=== PATIENT | male | born 1990 | race Caucasian/White ===

== ENCOUNTER 2024-12-06 20:24 | Emergency (ER) | payer MEDICAID ==
[2024-12-07] MEDS ORDERED: CLIN150C16 PO (00:58)
== END 2024-12-06 22:25 | disposition left against medical advice (07) ==
LOC: ER 20:24
DX: B37.0 Candidal stomatitis (principal); Z53.21 Procedure and treatment not carried out due to patient leaving prior to being seen by health care provider

== ENCOUNTER 2024-12-07 00:07 | Emergency (ER) | payer MEDICAID ==
[~2024-12-07] VITALS: Ht 172.7 cm; Wt 63.5 kg
[2024-12-07 00:27] VITALS: BP 121/74; TEMP 98.8; O2SAT 99
[2024-12-07] MEDS ORDERED: CLIN150C16 PO (00:58)
[2024-12-07] MEDS ORDERED: ACETAMINOPHEN 325 MG TABLET ONE (01:02)
[2024-12-07] MEDS ORDERED: KETOROLAC TROMETHAMINE INJ 30 MG/ML VIAL ONE (01:02)
[2024-12-07] MEDS ORDERED: CLINDAMYCIN HCL 150 MG CAPSULE ONE (01:03)
[2024-12-07] MEDS: BACI/NEOM/POLY B OINT PKT 1 UDPKT PACKET TP ONE (01:17)
[2024-12-07] MEDS: KETOROLAC TROMETHAMINE INJ 30 MG/ML VIAL IM ONE (01:17)
[2024-12-07] MEDS: ACETAMINOPHEN 325 MG TABLET PO ONE (01:17)
[2024-12-07] MEDS: CLINDAMYCIN HCL 150 MG CAPSULE PO ONE (01:17)
== END 2024-12-07 01:25 | disposition home or self-care (01) ==
LOC: ER 00:09
DX: K08.89 Other specified disorders of teeth and supporting structures (principal); L57.0 Actinic keratosis
CPT/HCPCS: 99284; 96372; J1885